=== PATIENT | female | born 1985 | race Two or more races ===

== ENCOUNTER 2016-09-15 18:05 | Emergency (ER) | payer MEDICAID ==
[~2016-09-15] VITALS: Ht 160 cm; Wt 51.3 kg
[~2016-09-15 18:05] MED LIST: CIPROFLOXACIN500 M2 ORAL; PHENAZOPYRIDIN200 MG ORAL
[2016-09-15] MEDS ORDERED: WELLBUTRIN SR100 MG ORAL (18:40)
[2016-09-15] MEDS ORDERED: ADDERAL20 MG ORAL (18:40)
[2016-09-15] MEDS ORDERED: ZOLOFT25 MG ORAL (18:40)
[2016-09-15 19:52] LABS: APPEARANCE,URINE CLEAR; KETONES,URINE NEGATIVE (NEGATIVE); LEUKOCYTE ESTERASE ,URINE 2+ (NEGATIVE); NITRITE,URINE POSITIVE (NEGATIVE); PH,URINE 6.5 (4.5-8.0); PROTEIN,URINE NEGATIVE (NEGATIVE); UROBILINOGEN,URINE NORMAL MG/DL (0.0-1.0)
[2016-09-15 20:04] LABS: BACTERIA,URINE MODERATE /HPF; SQUAMOUS EPITHELIAL CELL,UR FEW /LPF (NONE/OCC)
[2016-09-15] MEDS ORDERED: Azithromycin 250mg tab ORAL ONE (20:15)
[2016-09-15 20:20] VITALS: BP 110/68
[2016-09-15] MEDS ORDERED: NITROFURANTOIN100 M2 ORAL (20:23)
[2016-09-15] MEDS ORDERED: Lidocaine 1% MPF 10mg/ml 5ml ONE (20:54)
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
== END 2016-09-15 20:20 | disposition home or self-care (01) ==
LOC: EMR 18:56
DX: Z04.41 Encounter for examination and observation following alleged adult rape (principal); N39.0 Urinary tract infection, site not specified; F15.90 Other stimulant use, unspecified, uncomplicated
CPT/HCPCS: 80300; 81003; 81025; 87086; 87181; 96372; 99283; J0696; Q0144